=== PATIENT | female | born 1995 | race Asian ===

== ENCOUNTER 2022-06-28 03:40 | Emergency (ER) | payer MEDICAID, SELFPAY ==
--- NOTE | ~2022-06-28 | CT_ITS ---
EXAMINATION: CT SOFT TISSUE NECK WITH CONTRAST CLINICAL INFORMATION: Swelling and pain in the neck. COMPARISON: No relevant prior imaging. TECHNIQUE: Following the intravenous administration of 100 mL of Omnipaque 350 intravenous contrast, helical imaging was performed in the axial plane with generation of coronal and sagittal reformatted images. This CT examination was performed using dose optimization techniques as appropriate, variously including the following: *Automated exposure control *Adjustment of mA and/or kV according to patient size (this includes techniques or standardized protocols for targeted exams where dose is matched to indication/reason for exam; i.e. extremities or head) *Use of iterative reconstruction technique DLP: 469 mGy-cm FINDINGS: There is symmetric enlargement of bilateral level II cervical lymph nodes and a few prominent albeit otherwise nonspecific level I cervical lymph nodes. None of these lymph nodes demonstrate worrisome enhancement characteristics to suggest capsular invasion or central necrosis. Pharyngeal mucosal spaces are symmetric. Parapharyngeal and retromaxillary fat is preserved. Senior Graphic [employer]er spaces are unremarkable. Parotid and submandibular glands are normal. The tongue base and epiglottis are normal. Preepiglottic fat is preserved. Glottic and subglottic airways are widely patent. The thyroid gland is normal and the remainder of the visualized visceral soft tissues are normal. Lung apices are clear. Aortic arch apex is normal. Cervical carotid and vertebral arteries are patent. Internal jugular veins fill symmetrically. There is no acute osseous finding. No worrisome lytic or blastic osseous lesion. The skull base is intact. No mastoid or middle ear effusion. Limited visualization of the intracranial anatomy reveals no abnormal finding. Specifically no midline shift or hydrocephalus. CT/CT soft tissue neck w IV con IMPRESSION: There are symmetrically enlarged level II cervical lymph node and a few prominent albeit otherwise nonspecific level I cervical lymph nodes, none of which demonstrate worrisome enhancement characteristics to suggest necrosis or capsular invasion. Otherwise unremarkable examination in that there is no discrete enhancing soft tissue mass. Imaging findings could represent reactive adenopathy therefore correlation with possible recent clinical history of infection or vaccination is recommended. Continued clinical follow-up is advised to ensure stability/resolution.
--- NOTE | ~2022-06-28 | XR_ITS ---
EXAMINATION: XR CHEST CLINICAL INFORMATION: Neck swelling, rule out mass. COMPARISON: None TECHNIQUE: 2 views of the chest were obtained. FINDINGS: No significant abnormality is noted involving the heart, lungs, mediastinum, bony thorax or soft tissues. XR/XR chest 2V IMPRESSION: No acute cardiopulmonary process.
[2022-06-28 03:58] VITALS: BP 148/99; PULSE 95; RESP 16; TEMP 36.6; O2SAT 98; BMI 28.1
[2022-06-28 05:51] VITALS: BP 116/77; PULSE 90; RESP 16; TEMP 36.9; O2SAT 98
[2022-06-28 06:00] VITALS: BP 104/71; PULSE 77; RESP 16; TEMP 36.9; O2SAT 98
--- NOTE | 2022-06-28 07:51 | PC.NURSE ---
This research and development technician brought patient hot tea at 07:30.
[2022-06-28 08:39] LABS: MANUAL DIFF FLAG NO
--- NOTE | 2022-06-28 08:40 | ED.GENADULT ---
HPI - General Adult General Chief complaint: General Medical Stated complaint: swollen throat, breaking out on forehead Time Seen by Provider: 06/28/22 08:03 Source: patient Mode of arrival: ambulatory Limitations: no limitations History of Present Illness HPI narrative: 26 year old female with no known medical history who was born in [place] and immigrated here as an adult presents with complaints of neck swelling and pain for the last 1 week. Patient reports some difficulty with swallowing at times. She denies any fevers, chills, night sweats, weight loss. Patient reports that for the last few months since having COVID she has had some intermittent throat discomfort and difficulty swallowing but over the last week she has appreciated increase in pain and swelling. Patient also complaining of some cystic acne which she has had worsening over the last 1-2 weeks but has been ongoing for several months despite taking some [id number] vitamins and supplements. Patient does have insurance but has no primary care doctor here. Patient denies any cough, shortness of breath, chest pain, vomiting, diarrhea, neck pain or neck stiffness, headache. Patient is unsure about her vaccination status as a child. Patient denies any smoking history, substance use, alcohol use. Related Data Previous Rx's Medication Instructions Recorded amoxicillin 500 mg tablet 500 mg PO BID #20 tabs 06/28/22 Allergies Allergy/AdvReac Type Severity Reaction Status Date / Time Unable to Assess Allergy Verified 06/28/22 08:16 Review of Systems Review of Systems: Yes all other systems are reviewed and are negative Constitutional: Constitutional: Reports no additional constitutional complaints, Denies body ache(s), Denies chills, Denies fever(s), Denies headache(s) and Denies weakness Eyes: Eyes: Reports no additional eye complaints and Denies change in vision ENT: Reports system reviewed and no additional complaints, except as documented, Reports dysphagia, Denies dizziness, Denies headache(s), Denies nasal congestion, Denies nasal discharge, Denies neck pain, Reports sore throat and Reports throat swelling Cardiovascular: Cardiovascular: Reports no additional cardiovascular complaints, Denies chest pain, Denies leg edema and Denies dyspnea Respiratory: Respiratory: Reports no additional respiratory complaints, Denies cough and Denies dyspnea Gastrointestinal: Gastrointestinal: Reports no additional gastrointestinal complaints, Denies abdominal pain, Reports dysphagia, Denies diarrhea, Denies nausea and Denies vomiting Genitourinary: Genitourinary: Reports no additional female genitourinary complaints and Denies urinary incontinence Musculoskeletal: Musculoskeletal: Reports no additional musculoskeletal complaints, Denies back pain, Denies arthralgias, Denies joint swelling, Denies neck pain, Denies numbness and Denies tingling Integumentary/Breasts: Skin/Breast: Reports system reviewed and no additional complaints, except as docu and Reports rash Neurologic: Reports system reviewed and no additional complaints, except as documented, Denies dizziness, Denies headache(s), Denies numbness, Denies tingling and Denies weakness Allergic/Immunologic: Allergic/Immunologic: Reports throat swelling PMFSH Past Medical History Attestation statement: The following information was validated with the patient. Source: old records reviewed and nursing notes reviewed Social History Social History Smoked in Last 30 Days: No Use of substances other than those prescribed or required for medical reasons: No Advance Directives: No Advance Directives Information Provided: Yes Patient : No Physical Exam ED Vital Signs: Vital Signs - 24 hr 06/28/22 03:58 06/28/22 05:51 06/28/22 06:00 Temperature 97.8 F 98.4 F 98.5 F Pulse Rate 95 90 77 Respiratory Rate 16 16 16 Blood Pressure 148/99 H 116/77 104/71 Pulse Oximetry 98 98 98 Oxygen Delivery Method Room Air Room Air Room Air 06/28/22 11:05 Temperature 98.3 F Pulse Rate 97 Respiratory Rate 16 Blood Pressure 130/73 Pulse Oximetry 97 Oxygen Delivery Method Room Air BMI result Body Mass Index 28.1 Const General: cooperative, healthy appearing, comfortable and no acute distress Orientation/consciousness: patient oriented x3 Limitations: no limitations [facility] Head: Yes normal to inspection Ears: hearing grossly normal bilaterally and TM's normal bilaterally General nose exam: Normal external nose present Face and sinus: Yes normal facial exam Mouth: Normal oral and palatal mucosa present, lip normal and tongue normal Teeth and gingiva: dentition normal Throat: Yes posterior oropharynx normal, Yes tonsils normal and Yes uvula midline Eyes General: appearance normal, both eyes and all related structures Pupils: Equal, round and reactive pupils present Neck Other: There is submandibular and submental lymphadenopathy which is tender Neck: Yes normal visual inspection, Yes full ROM and Yes no meningeal signs Chest Chest palpation & inspection: normal inspection of the chest Cardio Rate: regular rate Rhythm: regular rhythm Peripheral pulses: Peripheral pulses 2+ throughout GI Inspection: Yes normal to inspection Palpation (GI): Soft to palpation and nontender General: Yes no CVA tenderness Back/Spine/Pelvis Back: no CVA tenderness Thoracic/Lumbar Spine: thoracic and lumbar spine normal to inspection Skin General skin exam: no rashes or lesions noted Neuro General: patient oriented x3, moves all extremities and no meningeal signs Cranial nerves: Yes Equal, round and reactive pupils present Cognition (Neuro): normal cognition Gait exam (Neuro): Normal gait present Motor exam (neuro): 5/5 motor strength present throughout Sensory Exam: Normal double simultaneous stimulation for sensation Extrem General: Yes normal to inspection, Yes no pedal edema and Yes no calf tenderness Course Course Course Narrative: Ct neck w/ contrast IMPRESSION: There are symmetrically enlarged level II cervical lymph node and a few prominent albeit otherwise nonspecific level I cervical lymph nodes, none of which demonstrate worrisome enhancement characteristics to suggest necrosis or capsular invasion. Otherwise unremarkable examination in that there is no discrete enhancing soft tissue mass. Imaging findings could represent reactive adenopathy therefore correlation with possible recent clinical history of infection or vaccination is recommended. Continued clinical follow-up is advised to ensure stability/resolution.? Chest x-ray shows no acute finding. Labs are unremarkable COVID screen is negative. Syphilis testing is negative. Mumps testing is pending. Discussed the case with Dr. Clark. We will treat the patient empirically with antibiotics for lymphadenopathy. Patient will need to follow up outpatient with primary care doctor. Patient is currently . I considered starting her on doxycycline for both the cystic acne and lymphadenopathy but this is not recommended breast feeding. Therefore patient will be started on amoxicillin. She is recommended to follow up outpatient with primary care and seek dermatology referral for her cystic acne. Reviewed worrisome signs symptoms of when to return to the emergency room. Comfortable plan for discharge home. Medications Administered Discontinued Medications Generic Name Dose Route Start Last Admin Trade Name Freq PRN Reason Stop Dose Admin Iohexol 100 ml 06/28/22 09:47 06/28/22 09:47 Iohexol 350 Mg/Ml 100 Ml Infus..Btl IV 06/28/22 09:48 60 ml ONCE ONE Administration Medical Decision Making Medical Decision Making [facility] Narrative: This is a 26-year-old female who presents with 1 week of neck swelling, neck pain, difficulty swallowing with submandibular and submental lymphadenopathy on exam. Vaccination status is unknown as patient was born in [place] and immigrated here as an adult. Patient tolerating secretions. Vitals are stable. Lungs are clear. Will check labs, CT soft tissue with IV contrast, chest x-ray, COVID screen Differential Diagnoses: Differential diagnosis (Considered parotitis, mumps, thyroid mass, TB, syphilis) Independent interpretation of EKG, rhythm strip, radiology study: Independent interp EKG,rhythm strip, radiology study I performed an independent interpretation of the: CT Scan (Reviewed by radiology-There are symmetrically enlarged level II cervical lymph node and a few prominent albeit otherwise nonspecific level I cervical lymph nodes, none of which demonstrate worrisome enhancement characteristics to suggest necrosis or capsular invasion. Otherwise unremarkable examinat) My interpretation is Discharge Plan Discharge Clinical Impression: Lymphadenopathy, Cystic acne Patient Disposition: Home, Self-Care Instructions: Lymphadenopathy (ED) Additional Instructions: Your CT scan shows some swollen lymph nodes. You do need to establish a primary care doctor to follow-up with them. We are starting you on a course of antibiotics for both the acne and the swollen lymph nodes. If you have continued swollen lymph nodes it is important to follow-up with primary care doctor as you may need a biopsy of these. Return for any worsening symptoms Prescriptions: New amoxicillin 500 mg tablet 500 mg PO BID Qty: 20 0RF Referrals: Physician,None [Primary Care Provider] - Interventions: ED Discharge Assessment Last Done: 06/28/22 11:12 Discharge Date/Time: 06/28/22 11:13
[2022-06-28 08:41] LABS: Basophils Percent Auto 0.2 % (0-2); Eosinophils Absolute Auto 0.1 X10*3/uL (0.0-0.4); Eosinophils Percent Auto 1.5 % (0-4); Hemoglobin 11.6 g/dl (12.0-16.0); Imm Gran Abs Auto 0.04 X10*3/uL (0.00-0.03); Imm Gran Pct Auto 0.5 % (0.0-0.4); Lymphocytes Absolute Auto 3.2 X10*3/uL (1.2-4.9); Lymphocytes Percent Auto 37.5 % (20-40); Mean Corpuscular HGB Conc 32.2 g/dl (31.0-35.0); Mean Corpuscular Hemoglobin 23.9 pg (27.0-33.0); Mean Corpuscular Volume 74.2 fL (80.0-98.0); Mean Platelet Volume 10.4 fL (9.4-12.3); Monocytes Absolute Auto 0.6 X10*3/uL (0.1-1.2); Monocytes Percent Auto 7.2 % (2-11); Neutrophils Absolute Auto 4.5 x10*3/uL (2.0-8.3); Neutrophils Percent Auto 53.1 % (45-73); Platelet Count 274 X10*3/uL (160-400); Red Blood Count 4.85 X10*6/uL (4.20-5.50); Red Cell Distribution Width 14.5 % (11.0-16.0); White Blood Count 8.5 X10*3/uL (4.8-10.8)
[2022-06-28 09:18] LABS: Alanine Aminotransferase 16 U/L (0-31); Albumin Level 4.2 g/dL (3.5-5.0); Alkaline Phosphatase 77 U/L (39-117); Anion Gap 10 (12-20); Aspartate Amino Transferase 18 U/L (5-31); Bilirubin Direct < 0.2 mg/dL (0.0-0.5); Bilirubin Total 0.4 mg/dL (0.0-1.0); Blood Urea Nitrogen 13 mg/dL (9-16); Calcium 8.6 mg/dL (8.4-10.2); Carbon Dioxide 24 mmol/L (22-29); Chloride 107 mmol/L (96-108); Creatinine Clr Calc Pharmacy 134.5; Estimated Glomerular Filt Rate > 60; Glucose Random 105 mg/dL (60-115); Potassium 4.1 mmol/L (3.3-5.1); Sodium 137 mmol/L (135-145); Thyroid Stimulating Hormone 2.72 uIU/mL (0.32-4.0); Total Protein 7.1 g/dL (6.5-8.0)
[2022-06-28 09:24] LABS: COVID-19 Test Negative (Negative); IDNOW Serial# 55D5AD1C
[2022-06-28] MEDS: iohexoL 350 MG/ML 100 ML INFUS..BTL IV (09:47)
[2022-06-28 09:48] LABS: Syphilis Screen Nonreactive (Nonreactive)
[2022-06-28 11:05] VITALS: BP 130/73; PULSE 97; RESP 16; TEMP 36.8; O2SAT 97
[2022-07-05 18:37] LABS: Mumps Virus IgM Antibody <1:20 titer
== END 2022-06-28 11:13 | disposition home or self-care (01) ==
PROVIDERS: Nurse Practitioner Family; Emergency Provider Emergency Medicine Emergency Medical Services
DX: J02.9 Acute pharyngitis, unspecified (principal); L70.0 Acne vulgaris; R59.1 Generalized enlarged lymph nodes; R06.02 Shortness of breath; M54.2 Cervicalgia; Z20.822 Contact with and (suspected) exposure to COVID-19; Z79.899 Other long term (current) drug therapy
CPT/HCPCS: 36415; 70491; 71046; 80048; 80076; 84443; 85025; 86735; 86780; 87635; 99284; Q9967